=== PATIENT | male | born 1950 | race Caucasian/White ===

== ENCOUNTER 2025-07-15 15:41 | Emergency (ER) | payer MEDICARE, BC, SELFPAY ==
[2025-07-15 15:56] VITALS: BP 159/94; PULSE 62; RESP 18; TEMP 36.8; O2SAT 97
--- NOTE | 2025-07-15 16:07 | ED.GENADULT ---
HPI - General Adult General Date Seen: 07/15/25 Chief complaint: Extremity Pain/Injury, Lower Stated complaint: Left heel sore/cant put weight on left foot Time Seen by Provider: 07/15/25 16:06 History of Present Illness HPI narrative: 74 yo M Who is generally pretty healthy and robust. He lives independently at home with his . He does have a distant past medical history of AFib with previous ablation several years ago, bradycardia and pacemaker implantation. he also had a history of ruptured appendectomy as a child and then resultant small-bowel obstruction a few years ago that required surgery at [place]. He is otherwise generally healthy. No history of coronary artery disease, peripheral artery disease. No history of kidney or liver trouble. No history of CHF. He does have a history of a left hip fracture. Being a generally pretty active adult he has been working hard on maintaining physical fitness. He has been working lately on improving balance and strength in his feet and ankles. He started a new workout regimen where he does a lot of jumping on his tiptoes. In particular for the past few days he has been doing at least 100 tiptoe jumps per day. He did that exercise this morning, even more than normal. This afternoon when he was out for a walk he started noticing some pain in the sole of his left foot that stems from the heel and radiates forward. It became progressively worse to the point where he really could not bear weight on it. He does not have any other injury that he knows of. No specific moment that it started. He had not noticed any swelling in his foot at home but does have swelling that is seems to be starting here in the ER. No fever. No pain in the ankle or Achilles or tibia/ fibula. No pain in the calf. Related Data Home Medications ?Medication ?Instructions ?Recorded ?Confirmed bupropion HCl PO DAILY 07/15/25 duloxetine PO DAILY 07/15/25 ezetimibe PO DAILY 07/15/25 Allergies Allergy/AdvReac Type Severity Reaction Status Date / Time flecainide Allergy severe Verified 07/15/25 16:00 bradycardia Exam Narrative: Exam Narrative: Constitutional: Appears well-developed and well-nourished. Active. Non-toxic appearing. HENT: Head: Atraumatic. No signs of injury. Nose: No nasal discharge. Mouth/Throat: Mucous membranes are moist. Pharynx is normal. Tonsils symmetric. Uvula midline. Airway patent. Eyes: Conjunctivae normal and EOM are normal. Pupils are equal, round, and reactive to light. Right eye exhibits no discharge. Left eye exhibits no discharge. No icterus. Neck: Normal range of motion. Neck supple. No adenopathy. No stridor. Cardiovascular: Normal rate and regular rhythm. Strong and symmetric DP pulses. Normal brisk distal capillary refill. Both feet are pink, warm, well perfused.l Pulmonary/Chest: Effort normal. No stridor. No respiratory distress. No wheezes.No rhonchi. No rales. No retractions. Musculoskeletal: Normal except for his left foot-Normal range of motion. No edema. No tenderness. No deformity. left lower extremity: Hip, femur, quad, hamstring are normal and nontender. Knee is normal and nontender. Normal range of motion in the knee. Gastrocnemius and calf are nontender. Achilles tendon is nontender. No tenderness over the medial or lateral malleoli of the left ankle. There is subtle soft tissue swelling on lateral side of the hindfoot distal to the lateral malleolus and mild tenderness to palpation with lateral compression of the calcaneus. No bruising. No redness or warmth. Also mild tenderness on the sole of the foot at the base of the calcaneus. No tenderness over the 5th metatarsal. Note tenderness over the midfoot. No tenderness over the forefoot, metatarsal heads, or toes. Intact toe wiggling. Normal ankle plantar flexion and dorsiflexion but he does notice that when he dorsiflexes his ankle that the sole of his foot feels tighter and sore. Neurological: Alert. Normal strength. No cranial nerve deficit or sensory deficit. Coordination normal. GCS eye subscore is 4. GCS verbal subscore is 5. GCS motor subscore is 6. Skin: Skin is warm. No rash noted. Const: Vital Signs, click to edit/add: Vital Signs - 24 hr 07/15/25 15:56 Temperature 98.3 F Pulse Rate [Pulse Oximeter] 62 Respiratory Rate 18 Blood Pressure [Ri ght Upper Arm] 159/94 H Pulse Oximetry 97 Oxygen Delivery Me thod Room Air Course Vital Signs Vital signs: Initial Vital Signs Temperature 98.3 F 07/15/25 15:56 Temperature Source Temporal Artery Scan 11/07/25 15:56 Pulse Rate 62 07/15/25 15:56 Respiratory Rate 18 07/15/25 15:56 Blood Pressure 159/94 H 07/15/25 15:56 Blood Pressure Mean 115 H 07/15/25 15:56 Blood Pressure Position Sitting 07/15/25 15:56 Pulse Oximetry 97 07/15/25 15:56 Oxygen Delivery Method Room Air 07/15/25 15:56 Vital Signs Temperature 98.3 F 07/15/25 15:56 Pulse Rate 62 07/15/25 15:56 Respiratory Rate 18 07/15/25 15:56 Blood Pressure 159/94 H 07/15/25 15:56 Pulse Oximetry 97 07/15/25 15:56 Oxygen Delivery Method Room Air 07/15/25 15:56 Temperature 98.3 F 07/15/25 15:56 Pulse Rate 62 07/15/25 15:56 Respiratory Rate 18 07/15/25 15:56 Blood Pressure 159/94 H 07/15/25 15:56 Pulse Oximetry 97 07/15/25 15:56 Oxygen Delivery Method Room Air 07/15/25 15:56 Medical Decision Making [facility] Narrative Medical decision making narrative: Very pleasant 74-year-old gentleman presenting to the ER with acute onset of pain affecting his left foot, primarily on the sole of the left foot from the calcaneus forward into the midfoot. He has started doing some exercises lately that require him to jump up and down on the toes of his feet. He was trying to strengthen his feet and ankles. X-rays of the patient's foot and calcaneus were obtained because of his pain. Interesting he does have little bit of swelling notable on the lateral aspect of the calcaneus but no bruising or redness. X-rays are essentially negative. There is a small ossification center on the posterior calcaneus that is probably a chronic calcification of the Achilles tenderness insertion. Patient is not tender in that location and is not having any other symptoms of an Achilles tendon rupture or Achilles tendinitis. He is most tender on the sole of the foot. At this point we suspect this may be a injury to the plantar fascia or evolving plantar fasciitis. Will place the patient into a short Cam walking boot and put him on crutches to make him limited weight-bearing so he can rest his foot for a couple of days. Recommend close outpatient follow-up with [facility] if not dramatically improving At this point there is no evidence for any acute limb ischemia, gangrene, pallor. Symptoms not consistent with a lumbar radiculopathy. No evidence for any redness or warmth suggest evolving infection of the foot or ankle joint. No other rashes. Precautions for return to the ER reviewed. Imaging Data XR foot: Attestation: I have reviewed the pertinent imaging results. 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 A miniscule heel spur is present. No gross evidence of fracture. Mild great toe arthritis. No erosion. Impression: No acute osseous abnormality. XR calcaneus: Attestation: I have reviewed the pertinent imaging results. 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 A miniscule heel spur is present. No gross evidence of fracture. Mild great toe arthritis. No erosion. Impression: No acute osseous abnormality. Discharge Plan Discharge Clinical Impression: Acute pain of left foot Patient Disposition: Home, Self-Care Condition: Stable Instructions: Plantar Fasciitis (ED), Plantar Fasciitis Exercises (ED) Additional Instructions: As we discussed, your x-rays look good today. We do not see anything broken in your foot. You do have a small bit of calcified bone adjacent to the Achilles tendon on the back of her heel bone, but that does not appear to be in acute injury or cause for your pain today. Please wear the walking boot and use the crutches for the next couple of days. Rest her foot when possible. It is okay to ice her foot for 20 minutes every 3-4 hours and use ibuprofen 600 mg to 2-3 times daily and Tylenol if needed for pain. Week SPECT that your foot should be feeling better with rest over the next 2-3 days. If not feel dramatically better within 3 days, please follow-up with the [facility]. You can call [phone] to arrange an ER follow-up visit If you have any concerns such as worsening pain or swelling, numbness or pallor in your foot, redness of your foot or high fever, please come back to the ER right away. Prescriptions: No Action bupropion HCl PO DAILY duloxetine [Cymbalta] PO DAILY ezetimibe PO DAILY Follow Up/Referrals: Provider,Not a Local [Primary Care Provider, Family Practice] Stand Alone Forms: judo Info Instructions
--- NOTE | 2025-07-15 16:25 | CRLHL7_ITS ---
For Patients: As a result of the Century Cures Act, medical imaging exams and procedure reports are released immediately into your electronic medical record. You may view this report before your referring provider. If you have questions, please contact your health care provider. Indication: Left foot and heel pain. Technique: Three views of the left foot. Two views of the left calcaneus. Comparison: None. 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 A miniscule heel spur is present. No gross evidence of fracture. Mild great toe arthritis. No erosion. Impression: No acute osseous abnormality. Dictated by Musa Dutta MD @ 07/15/2025 5:15:11 PM (Electronically Signed)
[2025-07-15 17:53] VITALS: BP 132/68; PULSE 68; RESP 14; TEMP 36.8
== END 2025-07-15 17:54 | disposition home or self-care (01) ==
PROVIDERS: Emergency Provider Emergency Medicine
DX: M79.672 Pain in left foot (principal)
CPT/HCPCS: 73630; 73650; 99282; 99283